=== PATIENT | female | born 1945 | race Caucasian/White ===

== ENCOUNTER 2017-12-07 10:54 | Emergency (ER) | payer MEDICARE, BC ==
--- NOTE | 2017-12-07 11:48 | ED ---
General Adult HPI - General Chief complaint: Recheck/Abnormal Lab/Rx Stated complaint: hypertension, not feeling right Time Seen by Provider: 12/07/17 11:33 Source: patient, family, RN notes reviewed Mode of arrival: ambulatory Limitations: no limitations - History of Present Illness Initial comments: Patient is a pleasant 72-year-old female presenting to the emergency Department with complaints of hypertension. Patient states she's been having sinus pressure for the past 4 days. Patient states she is having some associated headache. Patient went to urgent care today and blood pressure was high at approximately 180/120. Patient was advised to come to emergency department. Patient does have a history of hypertension however states it does not usually run that high. Patient is under increased stress recently with recent family . Patient states discomfort is only mild at this time rated as 4/10. No confusion. No weakness. No speech problems. - Related Data Home Medications Medication Instructions Recorded Confirmed Ezetimibe [Zetia] 10 mg PO HS 12/07/17 12/07/17 Fenofibrate Nanocrystallized 145 mg PO HS 12/07/17 12/07/17 [Fenofibrate] Levothyroxine Sodium [Synthroid] 100 mcg PO DAILY 12/07/17 12/07/17 Metoprolol/Hydrochlorothiazide 1 tab PO DAILY 12/07/17 12/07/17 [Lopressor Hct 50-25 mg Tab] Pantoprazole Sodium [Protonix] 40 mg PO DAILY 12/07/17 12/07/17 Vit C/E/Zn/Coppr/Lutein/Zeaxan 1 cap PO BID 12/07/17 12/07/17 [Preservision Areds 2 Softgel] Previous Rx's Medication Instructions Recorded Azithromycin [Zithromax Z-pack] 250 mg PO DIRECTED #6 tab 12/07/17 Hydrochlorothiazide [Hydrodiuril] 25 mg PO DAILY #10 tab 12/07/17 Allergies Allergy/AdvReac Type Severity Reaction Status Date / Time Penicillins Allergy Unknown Verified 12/07/17 11:33 Childhood Review of Systems ROS Statement: Those systems with pertinent positive or pertinent negative responses have been documented in the HPI. ROS Other: All systems not noted in ROS Statement are negative. Constitutional: Denies: fever Eyes: Denies: eye pain ENT: Denies: ear pain Respiratory: Denies: cough Cardiovascular: Denies: chest pain Endocrine: Denies: fatigue Gastrointestinal: Denies: abdominal pain, vomiting Genitourinary: Denies: dysuria Musculoskeletal: Denies: back pain Skin: Denies: rash Neurological: Reports: headache. Denies: weakness, confusion Past Medical History Past Medical History: Hypertension Additional Past Medical History / Comment(s): aortic aneursym History of Any Multi-Drug Resistant Organisms: None Reported Past Surgical History: Orthopedic Surgery Additional Past Surgical History / Comment(s): knee Past Psychological History: No Psychological Hx Reported Smoking Status: Never smoker Past Alcohol Use History: None Reported, Rare Past Drug Use History: None Reported General Exam Limitations: no limitations General appearance: alert, in no apparent distress Head exam: Present: atraumatic Eye exam: Present: normal appearance, PERRL, EOMI ENT exam: Present: normal oropharynx, other (Minimal tenderness over the frontal sinuses) Neck exam: Present: normal inspection. Absent: tenderness Respiratory exam: Present: normal lung sounds bilaterally Cardiovascular Exam: Present: regular rate, normal rhythm GI/Abdominal exam: Present: soft. Absent: tenderness Extremities exam: Present: normal inspection Neurological exam: Present: alert, CN II-XII intact. Absent: motor sensory deficit Expanded Neurological exam: Present: protecting the airway Patient oriented to: Present: person, place, time Speech: Present: fluid speech Cranial nerves: EOM's Intact: Normal, Facial Sensation: Normal Sensory exam: Upper Extremity Light Touch: Normal, Lower Extremity Light Touch: Normal Motor strength exam: RUE: 5, LUE: 5, RLE: 5, LLE: 5 Eye Response: (4) open spontaneously Motor Response: (6) obeys commands Verbal Response: (5) oriented Psychiatric exam: Present: normal affect, normal mood Skin exam: Present: normal color Course Vital Signs 12/07/17 12/07/17 12/07/17 11:17 12:10 12:59 Temperature 98.4 F Pulse Rate 62 65 62 Respiratory 18 16 20 Rate Blood Pressure 173/87 204/92 221/86 O2 Sat by Pulse 93 L 96 95 Oximetry 12/07/17 12/07/17 12/07/17 14:42 15:27 15:54 Temperature 98.1 F Pulse Rate 84 75 Respiratory 18 20 Rate Blood Pressure 222/88 172/89 178/85 O2 Sat by Pulse 92 L 92 L Oximetry - Reevaluation(s) Reevaluation #1: 12/07/17 11:47 Patient is recommended to have had CT however refuses. Medical Decision Making - Medical Decision Making Patient reevaluated and resting comfortably in bed. Patient and family updated on results and need for follow-up. - Lab Data Result diagrams: 12/07/17 12:53 12/07/17 12:53 Lab Results 12/07/17 12/07/17 12/07/17 Range/Units 12:53 12:53 13:56 WBC 5.6 (3.8-10.6) k/uL RBC 4.98 (3.80-5.40) m/uL Hgb 15.7 (11.4-16.0) gm/dL Hct 46.3 H (34.0-46.0) % MCV 93.0 (80.0-100.0) fL MCH 31.4 (25.0-35.0) pg MCHC 33.8 (31.0-37.0) g/dL RDW 13.0 (11.5-15.5) % Plt Count 231 (150-450) k/uL Neutrophils % 61 % Lymphocytes % 27 % Monocytes % 7 % Eosinophils % 2 % Basophils % 0 % Neutrophils # 3.4 (1.3-7.7) k/uL Lymphocytes # 1.5 (1.0-4.8) k/uL Monocytes # 0.4 (0-1.0) k/uL Eosinophils # 0.1 (0-0.7) k/uL Basophils # 0.0 (0-0.2) k/uL ESR 4 (0-20) mm/hr Sodium 141 (137-145) mmol/L Potassium 4.3 (3.5-5.1) mmol/L Chloride 106 (98-107) mmol/L Carbon Dioxide 25 (22-30) mmol/L Anion Gap 10 mmol/L BUN 26 H (7-17) mg/dL Creatinine 0.80 (0.52-1.04) mg/dL Est GFR (CKD-EPI)AfAm 86 (>60 ml/min/1.73 sqM) Est GFR (CKD-EPI)NonAf 75 (>60 ml/min/1.73 sqM) Glucose 85 (74-99) mg/dL Calcium 9.8 (8.4-10.2) mg/dL Urine Color Light Yellow Urine Appearance Clear (Clear) Urine pH 7.0 (5.0-8.0) Ur Specific [place] 1.012 (1.001-1.035) Urine Protein Negative (Negative) Urine Glucose (UA) Negative (Negative) Urine Ketones Negative (Negative) Urine Blood Negative (Negative) Urine Nitrite Negative (Negative) Urine Bilirubin Negative (Negative) Urine Urobilinogen <2.0 (<2.0) mg/dL Ur Leukocyte Esterase Negative (Negative) Disposition Clinical Impression: Hypertension Disposition: HOME SELF-CARE Condition: Stable Instructions: Hypertension (ED), Sinusitis (ED) Additional Instructions: Please follow-up with primary care physician in the next couple days for recheck. Please keep a diary of blood pressures throughout the day. Extra hydrochlorothiazide is prescribed if needed for persistent hypertension, greater than 180/90 greater than 1 hour following regular medication. Return for headache, confusion, weakness, worsening or changing symptoms or other concerns. Prescriptions: Azithromycin [Zithromax Z-pack] 250 mg PO DIRECTED #6 tab Hydrochlorothiazide [Hydrodiuril] 25 mg PO DAILY #10 tab Is patient prescribed a controlled substance at d/c from ED?: No Referrals: Lisseth Jacobs MD [STAFF PHYSICIAN] - 1-2 days Time of Disposition: 16:06
[2017-12-07] MEDS ORDERED: ENALAPRILAT 1.25 MG/ML 1 ML VIAL IVP STA ×2 (12:11→13:54)
[2017-12-07 13:11] LABS: Basophils % (A) 0 %; Eosinophils # (A) 0.1 k/uL (0-0.7); Eosinophils % (A) 2 %; HCT 46.3 % (34.0-46.0); HGB 15.7 gm/dL (11.4-16.0); Lymphocytes # (A) 1.5 k/uL (1.0-4.8); Lymphocytes % (A) 27 %; MCH 31.4 pg (25.0-35.0); MCHC 33.8 g/dL (31.0-37.0); Mean Platelet Volume 6.7; Monocytes # (A) 0.4 k/uL (0-1.0); Monocytes % (A) 7 %; Neutrophils # (A) 3.4 k/uL (1.3-7.7); Neutrophils % (A) 61 %; Platelet Count 231 k/uL (150-450); RBC 4.98 m/uL (3.80-5.40); WBC 5.6 k/uL (3.8-10.6)
[2017-12-07 13:39] LABS: Calcium 9.8 mg/dL (8.4-10.2); Potassium 4.3 mmol/L (3.5-5.1)
[2017-12-07 14:19] LABS: Appearance,Urine Clear (Clear); Bilirubin,Urine Negative (Negative); Blood,Urine Negative (Negative); Color,Urine Light Yellow; Glucose,Urine (UA) Negative (Negative); Ketones,Urine Negative (Negative); Leukocyte Esterase,Urine Negative (Negative); Nitrite,Urine Negative (Negative); Protein,Urine Negative (Negative); Specific Gravity,Urine 1.012 (1.001-1.035); Urobilinogen,Urine <2.0 mg/dL (<2.0)
[2017-12-07] MEDS ORDERED: HYDROCHLOROTHIAZIDE 12.5 MG CAP PO STA (14:49)
[2017-12-07 15:06] LABS: Erythrocyte Sedimentation Rate 4 mm/hr (0-20)
[2017-12-07 15:28] VITALS: TEMP 98.1
[2017-12-07 15:55] VITALS: BP 178/85; PULSE 75; RESP 20
== END 2017-12-07 16:14 | disposition home or self-care (01) ==
LOC: EC 10:54
DX: I10 Essential (primary) hypertension (principal); R51 Headache; Z79.899 Other long term (current) drug therapy; Z88.0 Allergy status to penicillin
CPT/HCPCS: 36415; 80048; 81003; 85025; 85652; 96374; 96376; 99283

== ENCOUNTER 2022-02-08 09:07 | Observation (INO) | payer MEDICARE, BC ==
--- NOTE | 2022-02-08 10:10 | ED ---
General Adult HPI - General Chief complaint: Skin/Abscess/Foreign Body Stated complaint: arm abscess Time Seen by Provider: 02/08/22 09:22 Source: patient, RN notes reviewed Mode of arrival: ambulatory Limitations: no limitations - History of Present Illness Initial comments: 77-year-old female presents emergency from chief complaint infection to her left arm. Patient states she had a total shoulder replacement several months ago. She states that she had small opening over incision which she was placed on Bactrim a month ago. Patient states that seemed to clear up but states a recurrent opened up and was placed on Keflex a few days ago. Patient denies any fevers or chills no increase in pain. Patient states she has a follow-up with orthopedic surgeon in [place]. - Related Data Home Medications Medication Instructions Recorded Confirmed Ezetimibe [Zetia] 10 mg PO HS 12/07/17 02/08/22 Fenofibrate Nanocrystallized 145 mg PO HS 12/07/17 02/08/22 [Fenofibrate] Pantoprazole Sodium [Protonix] 40 mg PO DAILY 12/07/17 02/08/22 Vit C/E/Zn/Coppr/Lutein/Zeaxan 1 cap PO BID 12/07/17 02/08/22 [Preservision Areds 2 Softgel] Cephalexin [Keflex] 500 mg PO TID 02/08/22 02/08/22 Levothyroxine Sodium 125 mcg PO DAILY 02/08/22 02/08/22 Losartan Potassium [Cozaar] 25 mg PO DAILY 02/08/22 02/08/22 Metoprolol Succinate (ER) [Toprol 50 mg PO DAILY 02/08/22 02/08/22 Xl] Pregabalin [Lyrica] 75 mg PO BID 02/08/22 02/08/22 Previous Rx's Medication Instructions Recorded hydroCHLOROthiazide [Hydrodiuril] 25 mg PO DAILY #10 tab 12/07/17 Allergies Allergy/AdvReac Type Severity Reaction Status Date / Time Penicillins Allergy Unknown Verified 02/08/22 11:00 Childhood Review of Systems ROS Statement: Those systems with pertinent positive or pertinent negative responses have been documented in the HPI. ROS Other: All systems not noted in ROS Statement are negative. Past Medical History Past Medical History: Hypertension Additional Past Medical History / Comment(s): aortic aneursym History of Any Multi-Drug Resistant Organisms: None Reported Past Surgical History: Orthopedic Surgery Additional Past Surgical History / Comment(s): knee Past Psychological History: No Psychological Hx Reported Smoking Status: Never smoker Past Alcohol Use History: None Reported, Rare Past Drug Use History: None Reported General Exam Limitations: no limitations General appearance: alert, in no apparent distress Head exam: Present: atraumatic, normocephalic, normal inspection Neck exam: Present: normal inspection. Absent: tenderness, meningismus, lymphadenopathy Respiratory exam: Present: normal lung sounds bilaterally. Absent: respiratory distress, wheezes, rales, rhonchi, stridor Cardiovascular Exam: Present: regular rate, normal rhythm, normal heart sounds. Absent: systolic murmur, diastolic murmur, rubs, gallop, clicks Extremities exam: Present: other (left shoulder old surgical incision lower aspect there is an opening with some serosanguineous drainage minimal erythema nontender for range of motion for patient's baseline) Course Vital Signs 02/08/22 09:10 Temperature 98.1 F Pulse Rate 76 Respiratory 20 Rate Blood Pressure 148/80 O2 Sat by Pulse 99 Oximetry Medical Decision Making - Medical Decision Making 77-year-old presented for left shoulder infection. Patient has abscess noted on ultrasound 5 cm with some drainage. Patient's minimal swelling antibiotics with minimal improvement. Patient admitted for IV antibiotics probable PICC line, surgical evaluation for drainage. Disposition Clinical Impression: Abscess of left shoulder, Failure of outpatient treatment Disposition: ADMITTED IP TO THIS HOSP Condition: Fair Referrals: Nonstaff,Physician [Primary Care Provider] - 1-2 days Time of Disposition: 11:04
--- NOTE | 2022-02-08 10:18 | XR ---
EXAMINATION TYPE: XR shoulder complete LT DATE OF EXAM: 02/08/2022 COMPARISON: NONE HISTORY: Swelling TECHNIQUE: Three views are submitted. FINDINGS: The osseous structures are intact. There is diffuse osteopenia with postsurgical change. Correlate f or soft tissue edema. AC joint arthropathy. No destructive changes. IMPRESSION: 1. Postoperative change
--- NOTE | 2022-02-08 11:01 | US ---
EXAMINATION TYPE: US extremity nonvasc mass LT DATE OF EXAM: 02/08/2022 COMPARISON: NONE CLINICAL HISTORY: Left shoulder infection, assess for abscess. Known infection near left axilla at si te of previous shoulder surgery incision for over 1 month Complex fluid collection seen up to 5cm in depth from skin line, some hypervascularity, cephalic vein seen adjacent to wound with color Doppler flow. IMPRESSION: Complex fluid collection seen in the left upper arm measuring up to 5 cm suspicious for abscess.
[2022-02-08] MEDS ORDERED: HYDROcodone/APAP 5-325MG 1 EACH TAB PO PRN (11:59)
[2022-02-08] MEDS ORDERED: VANCOMYCIN IV PER PHARMACY 1 EACH MISC MISCELLANE PRN (11:59)
[2022-02-08] MEDS ORDERED: ACETAMINOPHEN TAB 325 MG TAB PO PRN (11:59)
[2022-02-08] MEDS ORDERED: NALOXONE 0.4 MG/ML 1 ML VIAL IV PRN (11:59)
[2022-02-08 12:06] LABS: Basophils # (A) 0.1 k/uL (0-0.2); Basophils % (A) 1 %; Eosinophils # (A) 0.1 k/uL (0-0.7); Eosinophils % (A) 2 %; HCT 43.9 % (34.0-46.0); HGB 14.1 gm/dL (11.4-16.0); Lymphocytes # (A) 2.1 k/uL (1.0-4.8); Lymphocytes % (A) 33 %; MCH 28.8 pg (25.0-35.0); MCHC 32.2 g/dL (31.0-37.0); MCV 89.5 fL (80.0-100.0); Mean Platelet Volume 7.6; Monocytes # (A) 0.5 k/uL (0-1.0); Monocytes % (A) 8 %; Neutrophils # (A) 3.4 k/uL (1.3-7.7); Neutrophils % (A) 54 %; Platelet Count 352 k/uL (150-450); RBC 4.91 m/uL (3.80-5.40); RDW 14.7 % (11.5-15.5); WBC 6.3 k/uL (3.8-10.6)
[2022-02-08 12:22] LABS: Albumin 4.2 g/dL (3.5-5.0); Calcium 9.8 mg/dL (8.4-10.2); Potassium 4.2 mmol/L (3.5-5.1); Total Bilirubin 0.5 mg/dL (0.2-1.3); Total Protein 7.2 g/dL (6.3-8.2)
[2022-02-08] MEDS ORDERED: VANCOMYCIN 1,750 MG in SODIUM CHLORIDE 0.9% 500 ML 500 ML IVPB ONE (12:30)
[2022-02-08] MEDS ORDERED: CEFEPIME 2 GM in SODIUM CHLORIDE 0.9% 100 ML IVPB SCH (14:00)
--- NOTE | 2022-02-08 16:52 | P.HPIM ---
History of Present Illness H&P Date: 02/08/22 Chief Complaint: Shoulder abscess Patient is a 77-year-old female with history of left shoulder replacement, hypertension, hypothyroidism, and hyperlipidemia presenting left shoulder abscess and drainage. She claims that she had left shoulder replacement in [facility] in May,. She was doing well with her therapy over the last 7 months. However, she started to notice a small blister on the left shoulder, with drainage. It progressed to localized swelling. She was given oral antibiotics by her PCP, which improved the swelling, but it recurred. She rec eived another course of antibiotics 1 week ago but her swelling and drainage continued. She has minimal pain around the abscess. She denies any pain with shoulder movement. She denies any fevers or chills. In the ED, she was afebrile. Labs were significant for normal WBC and elevated Creatinine. Shoulder Xray was unremarkable. Shoulder ultrasound demonstrated 5 cm abscess. She was started on IV antibiotics and Ortho was consulted Patient seen and examined at bedside. Pertinent positives and negatives as discussed in HPI, a complete review of systems was performed and all other systems are negative. Vital signs reviewed General: nontoxic, no distress, appears at stated age Derm: warm, dry, left anterior shoulder with 2-3 cm raised erythematous cyst with purulent drainage Head: atraumatic, normocephalic, symmetric Eyes: EOMI, no lid lag, anicteric sclera, pupils equal round reactive to light ENT: Nose and ears atraumatic, no thrush, no pharyngeal erythema Neck: No thyromegaly, no cervical lymphadenopathy, trachea midline, supple Mouth: no lip lesion, mucus membranes moist Cardiovascular: S1S2 reg, no murmur, positive posterior tibial pulse bilateral, no edema, capillary refill less than 2 seconds Lungs: clear to auscultation bilateral, no rhonchi, no rales, no wheeze, no accessory muscle use Abdominal: soft, nontender to palpation, no guarding, no appreciable organo megaly, normal bowel sounds Ext: no gross muscle atrophy, muscle strength 3 out of 5 in left upper extremity, normal in all other extremities, no contractures Neuro: CN II-XII grossly intact, light touch intact all 4 extremities, finger to nose within normal limits, Psych: Alert, oriented, appropriate affect Assessment/Plan: Left shoulder skin abscess Hx of Left shoulder replacement - 5 cm abscess based on US - at the area of prior incision - ESR, CRP pending - Ortho consult - NPO - continue vanc and cefepime for now - blood cultures pending - if no concern for joint infection per ortho, can narrow antibiotic therapy MARQUEZ - Unsure about baseline - Cr was 0.9 2 years ago - possibly related to recent abx use - UA pending - holding losartan and HCTZ - monitor urine output 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 Surrogate decision-maker: CODE STATUS: Full code DVT prophylaxis: heparin subq Anticipated discharge date: 02/09/[address]: home A total of 35 minutes was spent on the care of this complex patient more than 50% of the time was spent in counseling and care coordination. Past Medical History Past Medical History: Hypertension Additional Past Medical History / Comment(s): aortic aneursym History of Any Multi-Drug Resistant Organisms: None Reported Past Surgical History: Orthopedic Surgery Additional Past Surgical History / Comment(s): knee Past Psychological History: No Psychological Hx Reported Smoking Status: Never smoker Past Alcohol Use History: None Reported, Rare Past Drug Use History: None Reported Medications and Allergies Home Medications Medication Instructions Recorded Confirmed Type Ezetimibe [Zetia] 10 mg PO HS 12/07/17 02/08/22 History Fenofibrate Nanocrystallized 145 mg PO HS 12/07/17 02/08/22 History [Fenofibrate] Pantoprazole Sodium [Protonix] 40 mg PO DAILY 12/07/17 02/08/22 History Vit C/E/Zn/Coppr/Lutein/Zeaxan 1 cap PO BID 12/07/17 02/08/22 History [Preservision Areds 2 Softgel] hydroCHLOROthiazide [Hydrodiuril] 25 mg PO DAILY #10 tab 12/07/17 02/08/22 Rx Cephalexin [Keflex] 500 mg PO TID 02/08/22 02/08/22 History Levothyroxine Sodium 125 mcg PO DAILY 02/08/22 02/08/22 History Losartan Potassium [Cozaar] 25 mg PO DAILY 02/08/22 02/08/22 History Metoprolol Succinate (ER) [Toprol 50 mg PO DAILY 02/08/22 02/08/22 History Xl] Pregabalin [Lyrica] 75 mg PO BID 02/08/22 02/08/22 History Allergies Allergy/AdvReac Type Severity Reaction Status Date / Time Penicillins Allergy Unknown Verified 02/08/22 11:00 Childhood Physical Exam Vitals: Vital Signs Temp Pulse Resp BP Pulse Ox 02/08/22 09:10 98.1 F 76 20 148/80 99 Intake and Output 02/08/22 02/08/22 02/08/22 06:59 14:59 22:59 Other: Weight 104.326 kg Results CBC & Chem 7: 02/08/22 11:35 02/08/22 11:35 Labs: Abnormal Lab Results - Last 24 Hours (Table) 02/08/22 Range/Units 11:35 BUN 37 H (7-17) mg/dL Creatinine 1.26 H (0.52-1.04) mg/dL Glucose 111 H (74-99) mg/dL
--- NOTE | 2022-02-08 18:27 | P.CNOR ---
History of Present Illness - [facility] Consult date: 02/08/22 Consult reason: other (Left shoulder abscess) History of present illness: Patient is a 77 showed female who presented to the emergency room at [facility] today with regards to concerns over a wound involving her left shoulder. Patient had underwent a left total shoulder arthroplasty in [place] back in May 2021. Patient and her stay in [place] for the summer and then had back down for the fall and winter. She is a she is scheduled to return to [place] in the next few weeks. Patient states that the wound developed near the distal end of her incision about a month or so ago. Patient has no primary care doctor that she sees in [place] while she is here, she had gone to the urgent care and a few different occasions. That initially treated with oral antibiotics. She states that the first course of oral antibiotics seem to work well, the area closed up and stop draining. She states about a week or so ago it started to drain once again. She reported to the emergency room today due to worsening drainage. Patient was evaluated by internal medicine. Multiple lab tests and imaging test have been ordered. An ultrasound of the left shoulder was also ordered and obta ined. At bedside on exam, she is very stable, she does not appear septic. Patient is having no acute pain in her left shoulder, she states that it's been very minimal discomfort since her initial surgery back in May. Patient denies any fevers or chills. Patient denies any pain involving other joints in the left upper extremity, right upper extremity or bilateral lower extremity is. Patient denies any obvious paresthesias or obvious numbness of the upper extremities. She denies any recent trauma. Review of Systems Constitutional: Reports as per HPI Past Medical History Past Medical History: Hypertension Additional Past Medical History / Comment(s): aortic aneursym History of Any Multi-Drug Resistant Organisms: None Reported Past Surgical History: Orthopedic Surgery Additional Past Surgical History / Comment(s): knee Past Psychological History: No Psychological Hx Reported Smoking Status: Never smoker Past Alcohol Use History: None Reported, Rare Past Drug Use History: None Reported Medications and Allergies Home Medications Medication Instructions Recorded Confirmed Type Ezetimibe [Zetia] 10 mg PO HS 12/07/17 02/08/22 History Fenofibrate Nanocrystallized 145 mg PO HS 12/07/17 02/08/22 History [Fenofibrate] Pantoprazole Sodium [Protonix] 40 mg PO DAILY 12/07/17 02/08/22 History Vit C/E/Zn/Coppr/Lutein/Zeaxan 1 cap PO BID 12/07/17 02/08/22 History [Preservision Areds 2 Softgel] hydroCHLOROthiazide [Hydrodiuril] 25 mg PO DAILY #10 tab 12/07/17 02/08/22 Rx Cephalexin [Keflex] 500 mg PO TID 02/08/22 02/08/22 History Levothyroxine Sodium 125 mcg PO DAILY 02/08/22 02/08/22 History Losartan Potassium [Cozaar] 25 mg PO DAILY 02/08/22 02/08/22 History Metoprolol Succinate (ER) [Toprol 50 mg PO DAILY 02/08/22 02/08/22 History Xl] Pregabalin [Lyrica] 75 mg PO BID 02/08/22 02/08/22 History Allergies Allergy/AdvReac Type Severity Reaction Status Date / Time Penicillins Allergy Unknown Verified 02/08/22 11:00 Childhood Physical Examination Osteopathic Statement: *. No significant issues noted on an osteopathic structural exam other than those noted in the History and Physical/Consult. Left upper extremity: Well-healed incision over the anterior aspect of the glenohumeral joint. There is a 12 centimeter opening in the skin near the distal end of the incision. There is some granulation tissue present on the wound edges with obvious serosanguineous drainage. There is mild erythema that surrounds that area. There is fluctuance appreciated in that area of redness. Patient demonstrates no significant tenderness with palpation around the incision. Patient is nontender surrounding the elbow, forearm, wrist and hand Range of motion: Passive range of motion, this to include forward elevation, abduction, internal and external rotation of the left shoulder reproduces no significant pain. Active motion reproduces no acute pain in the shoulder. Extension and flexion at the elbow are intact, no focal deficits, wrist extension, wrist flexion and finger intrinsics are also intact. No apparent strength deficits appreciated with shoulder elevation, shoulder abduction, internal rotation, external rotation. Strength is also intact with elbow extension, elbow flexion, wrist extension, wrist flexion, drill rig operator helper Her sensory exam to light touch throughout the extremity is intact Radial ulnar pulses are 2+ Results - Labs Labs: Abnormal Lab Results - Last 24 Hours (Table) 02/08/22 02/08/22 02/08/22 Range/Units 11:35 11:35 11:35 ESR 41 H (0-20) mm/hr BUN 37 H (7-17) mg/dL Creatinine 1.26 H (0.52-1.04) mg/dL Glucose 111 H (74-99) mg/dL C-Reactive Protein 2.5 H (<1.0) mg/dL Microbiology - Last 24 Hours (Table) 02/08/22 10:17 Wound Culture - Preliminary Shoulder - Left H & H 02/08/22 Range/Units 11:35 Hgb 14.1 (11.4-16.0) gm/dL Hct 43.9 (34.0-46.0) % Result Diagrams: 02/08/22 11:35 02/09/22 05:22 - Diagnostic results Shoulder x-ray: report reviewed, image reviewed (Images and report reviewed of the left shoulder. 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 Giles. No emergent orthopedic surgical intervention is recommended at this time I did discuss with the patient today at bedside the possible options for treatment. There is concern for a left shoulder periprosthetic infection due to the location of the incision wound and the findings of the ultrasound of that area and her current lab findings. Patient did state that she would prefer her original operating surgeon for any surgical procedures. Dr. Glies will be available the morning of 02/09/2022 to discuss the case in further detail and treatment options Patient has been started on IV antibiotics, recommend continuing at this time Regular diet at this time, nothing by mouth after midnight DVT prophylaxis GI and DVT prophylaxis per primary medical service Further recommendations to follow Patient seen and examined at bedside. She states her total shoulder replacement was performed in [place], [place] in May of 2021 and is now 8 months out from surgery. She first noticed the drainage from the incision about 1 month prior and has been to different primary providers and has been on and off of oral antibiotics. I discussed now that she is 8 months out with a presumed draining sinus tract over a prosthetic joint that she would likely need to be treated as a chronic periprosthetic joint infection requiring at least a 2 stage reconstruction due to likely biofilm formation involving implants. This would require initial I&D and implant removal with placement of an antibiotic spacer at her first stage followed by IV antibiotics and ultimate revision total shoulder arthroplasty. I explained this would need to be done by a shoulder specialist, ideally her original treating surgeon in [place]. She is scheduled to return to [place] in 2.5 weeks. I recommend antibiotics and close follow up with her shoulder specialist. If for some reason she is unable to return to [place] at that time I explained she needs to seek further care as this should likely be addressed in the next several weeks. For now she has minimal pain and no neurovascular or systemic compromise and is stable for DC and close outpatient follow up. -Tenzin Giles DO Orthopedic Surgeon Time with Patient: Less than 30
[2022-02-08] MEDS: PREGABALIN 75 MG CAP PO SCH (20:38)
[2022-02-08] MEDS ORDERED: EZETIMIBE 10 MG TAB PO SCH (21:00)
[2022-02-08] MEDS ORDERED: FENOFIBRATE 160 MG TAB PO SCH (21:00)
[2022-02-09] MEDS: HEPARIN SODIUM,PORCINE/PF 5,000 UNIT/0.5 ML SYRINGE SQ SCH ×2 (01:08→08:40)
[2022-02-09] MEDS ORDERED: CEFEPIME 2 GM in SODIUM CHLORIDE 0.9% 100 ML IVPB SCH ×2 (02:00→06:00)
[2022-02-09 06:12] LABS: African American GFR (CKD) 70 (>60 ml/min/1.73 sqM); Anion Gap 9 mmol/L; Blood Urea Nitrogen 30 mg/dL (7-17); Calcium 9.1 mg/dL (8.4-10.2); Carbon Dioxide 26 mmol/L (22-30); Chloride 105 mmol/L (98-107); Glucose 109 mg/dL (74-99); Non-African American GFR(CKD) 61 (>60 ml/min/1.73 sqM); Potassium 3.9 mmol/L (3.5-5.1); Sodium 140 mmol/L (137-145)
[2022-02-09] MEDS ORDERED: LEVOTHYROXINE 125 MCG TAB PO SCH (06:30)
[2022-02-09] MEDS ORDERED: PANTOPRAZOLE 40 MG TABLET PO SCH (07:30)
[2022-02-09] MEDS: PREGABALIN 75 MG CAP PO SCH (08:39)
[2022-02-09] MEDS ORDERED: FENOFIBRATE 160 MG TAB PO SCH (09:00)
[2022-02-09] MEDS ORDERED: METOPROLOL SUCCINATE (ER) 50 MG TAB.ER.24H PO SCH (09:00)
[2022-02-09] MEDS ORDERED: hydroCHLOROthiazide 25 MG TAB PO SCH (09:00)
[2022-02-09] MEDS ORDERED: LOSARTAN 25 MG TAB PO SCH (09:00)
[2022-02-09 09:08] LABS: Magnesium 1.9 mg/dL (1.5-2.4)
[2022-02-09 09:50] VITALS: RESP 16; TEMP 97.8
[2022-02-09] MEDS ORDERED: VANCOMYCIN 1,750 MG in SODIUM CHLORIDE 0.9% 500 ML 500 ML IVPB SCH (12:00)
--- NOTE | 2022-02-09 14:28 | P.DS ---
Providers Date of admission: 02/08/22 13:16 Expected date of discharge: 02/09/22 Attending physician: Matt Vu MD Consults: 02/08/22 14:44 Consult Physician Urgent Consulting Provider: Clyde Gill Consult Reason/Comments: Abscess Do you want consulting provider notified?: Yes Primary care physician: Physician Nonstaff Hospital Course: Discharge Diagnosis: Possible Left shoulder periprosthetic infection History of left shoulder replacement Left shoulder abscess Acute kidney injury Left arm neuropathy Hypertension Dyslipidemia GERD Hospital Course: 77-year-old female with a history of recent left shoulder replacement, hypertension, dyslipidemia presented with left shoulder abscess and drainage. Patient had an ultrasound in the emergency note demonstrated 5 cm complex fluid collection suspicious for abscess. Shoulder x-ray did not demonstrate any acute process. His elevated ESR and CRP. Orthopedics was consulted. There is a concern for possible periprosthetic infection given the location of abscess the incision site previous surgery. Orthopedics recommended possibly doing intervention here, but patient is scheduled to return to [place] in couple of weeks and would like to see her orthopedic surgeon. Orthopedics recommended to continue antibiotics until she sees her shoulder specialist in [place]. Patient to be discharged on Bactrim double strength twice daily. She had previously tolerated Bactrim well. Patient advised to see orthopedic surgeon as soon as possible. She will continue antibiotics until she can see the surgeon. Patient seen and examined at bedside. Vital signs reviewed and stable. General: nontoxic, no distress, appears at stated age Derm: warm, dry, left anterior shoulder with 2-3 cm raised erythematous just purulent drainage Head: atraumatic, normocephalic, symmetric Eyes: EOMI, no lid lag, anicteric sclera Mouth: no lip lesion, mucus membranes moist Cardiovascular: S1S2 reg, no murmur Lungs: CTA bilateral, no rhonchi, no rales , no accessory muscle use Abdominal: soft, nontender to palpation, no guarding, no appreciable organomegaly Ext: no gross muscle atrophy, no edema, no contractures Neuro: CN II-XI grossly intact, no focal neuro deficits, muscle strength 3/5 in upper left extremity, normal in all other extremities. Psych: Alert, oriented, appropriate affect A total of 37 minutes of time were spent preparing this complex discharge summary. Patient was discharged on 02/09/22 at 12:40 PM. Patient Condition at Discharge: Fair Plan - Discharge Summary New Discharge Prescriptions: New Sulfamethox-Tmp 800-160Mg [Bactrim DS 800-160 mg] 1 tab PO Q12HR #60 tab Continue Vit C/E/Zn/Coppr/Lutein/Zeaxan [Preservision Areds 2 Softgel] 1 cap PO BID Pantoprazole Sodium [Protonix] 40 mg PO DAILY Ezetimibe [Zetia] 10 mg PO HS Fenofibrate Nanocrystallized [Fenofibrate] 145 mg PO HS hydroCHLOROthiazide [Hydrodiuril] 25 mg PO DAILY #10 tab Pregabalin [Lyrica] 75 mg PO BID Metoprolol Succinate (ER) [Toprol XL] 50 mg PO DAILY Losartan Potassium [Cozaar] 25 mg PO DAILY Levothyroxine Sodium 125 mcg PO DAILY Discontinued Cephalexin [Keflex] 500 mg PO TID Discharge Medication List Ezetimibe [Zetia] 10 mg PO HS 12/07/17 [History] Fenofibrate Nanocrystallized [Fenofibrate] 145 mg PO HS 12/07/17 [History] Pantoprazole Sodium [Protonix] 40 mg PO DAILY 12/07/17 [History] Vit C/E/Zn/Coppr/Lutein/Zeaxan [Preservision Areds 2 Softgel] 1 cap PO BID 12/07/17 [History] hydroCHLOROthiazide [Hydrodiuril] 25 mg PO DAILY #10 tab 12/07/17 [Rx] Levothyroxine Sodium 125 mcg PO DAILY 02/08/22 [History] Losartan Potassium [Cozaar] 25 mg PO DAILY 02/08/22 [History] Metoprolol Succinate (ER) [Toprol XL] 50 mg PO DAILY 02/08/22 [History] Pregabalin [Lyrica] 75 mg PO BID 02/08/22 [History] Sulfamethox-Tmp 800-160Mg [Bactrim DS 800-160 mg] 1 tab PO Q12HR #60 tab 02/09/22 [Rx] Follow up Appointment(s)/Referral(s): Nonstaff,Physician [Primary Care Provider] - 1-2 days Patient Instructions/Handouts: Abscess (GEN) Activity/Diet/Wound Care/Special Instructions: Please see your orthopedic doctor as soon as possible in [place]. Continue michael ing oral antibiotics until you see your physician. Discharge Disposition: HOME SELF-CARE
[2022-02-09 15:02] VITALS: BP 131/72; PULSE 61
== END 2022-02-09 15:40 | disposition home or self-care (01) ==
LOC: EC 09:07 → 6NMEDSUR 13:16
PROVIDERS: ADMIT Internal Medicine; ATTEND Internal Medicine
DX: L02.91 Cutaneous abscess, unspecified (principal); I10 Essential (primary) hypertension; E03.9 Hypothyroidism, unspecified; E78.5 Hyperlipidemia, unspecified; N17.9 Acute kidney failure, unspecified; G62.9 Polyneuropathy, unspecified; R79.82 Elevated C-reactive protein (CRP); K21.9 Gastro-esophageal reflux disease without esophagitis; Z96.612 Presence of left artificial shoulder joint; Z79.890 Hormone replacement therapy; Z79.899 Other long term (current) drug therapy; Z88.0 Allergy status to penicillin
CPT/HCPCS: 96366 ×3; 96367; 96365; 96372; 99285; 36415; 80053; 80048; 85652; 83605; 83735; 85025; 86140; 87040; 87070; 87205; 73030; 76882; G0378 ×2; J3370 ×2; J0692 ×2; J1644